=== PATIENT | male | born 1935 | race Caucasian/White ===

== ENCOUNTER 2017-06-13 09:05 | Inpatient (IN) | payer MEDICARE, MEDICAID ==
[~2017-06-13] VITALS: Ht 185.4 cm; Wt 87.0 kg
[2017-06-13] VITALS (8 sets, daily range): BP systolic 124–167; BP diastolic 52–87; PULSE 56–62; RESP 10–20; O2SAT 93–99
[~2017-06-13 09:05] MED LIST: ARI5 PO; CLON0.1T14 PO; FURO40TA PO; INSLIS SQ; INSU100C2 SQ; KEP500T PO; LOPRESSOR25 MG PO; POTA20TA16 PO; ROSU5TAB PO; SERT100T PO
--- NOTE | 2017-06-13 09:11 | ED.REPORT ---
HPI-GI Bleed Date of Service Jun 13, 2017 ED Provider: Richie Simpson MD An 81 year old male with a history of vascular dementia, hypertension, prostate cancer s/p prostatectomy and radiation, CABG, diabetes, COPD and atrial fibrillation is brought to the ED via EMS due to rectal bleeding. Per report from [facility] where the pt resides, the pt had a small rectal bleed last night , but his diaper was fully saturated with bright red blood this morning. The pt estimates that he has bled 0.5 quarts of blood since onset and states that the bleeding has slowed down today. He was given his daily aspirin by staff this morning prior to awareness of the bleed. The pt denies lightheadedness, dizziness, abdominal pain, nausea or pain with the rectal bleeding. He had a significant lower GI bleed several years ago while on blood thinners requiring over ten units of blood. The pt was previously on Coumadin for his atrial fibrillation, but was taken off following his last GI bleed. The pt is a poor historian. Nursing Notes Stated Complaint: RECTAL BLEEDING Nursing Notes Reviewed: Yes Allergies: Coded Allergies: TAPE (Verified Allergy, Mild, severe water blisters, 09/11/09) morphine (Verified Adverse Reaction, Severe, NAUSEA, 09/11/09) Scheduled Acetaminophen (Acetaminophen) 500 Mg Tablet 500 MG PO TID Aspirin (Aspirin) 81 Mg Tablet 81 MG PO DAILY Brimonidine Tartrate (Brimonidine 0.15% Oph Soln) 10 Ml Drops 1 DROP BOTH_EYES TID Cholecalciferol (Vitamin D3) (Vitamin D) 1,000 Unit Capsule 1,000 UNIT PO DAILY Citalopram Hydrobromide (Celexa) 20 Mg Tablet 20 MG PO DAILY Cranberry Fruit (Cranberry) 450 Mg Tablet 450 MG PO TID Divalproex Sprinkle (Depakote Sprinkle) 125 Mg Capsule 125 MG PO TID Donepezil (Aricept) 5 Mg Tablet 5 MG PO BID Furosemide (Furosemide) 20 Mg Tab 10 MG PO DAILY Insulin Glargine (Lantus U100 Insulin Vial) 100 Unit/Ml Vial 10 UNIT SUBQ HS Insulin Glargine (Lantus U100 Insulin Vial) 100 Unit/Ml Vial 13 UNIT SUBQ DAILY Insulin Human Lispro (HumaLOG U100 Insulin Vial) 100 Unit/Ml Unit 6 UNIT SUBQ DAILYWM Hold for BG less than 80. Insulin Human Lispro (HumaLOG U100 Insulin Vial) 100 Unit/Ml Unit 6 UNIT SUBQ DAILYWL Hold for BG less than 80. Insulin Human Lispro (HumaLOG U100 Insulin Vial) 100 Unit/Ml Unit 5-7 UNIT SUBQ DAILYWD Blood Sugar Lispro Correction: 121-299 = 5 units; 300+ = 7 units. Latanoprost (Latanoprost) 2.5 Ml Drops 1 GTT BOTH_EYES HS Levetiracetam (Keppra) 750 Mg Tablet 750 MG PO BID Losartan Potassium (Losartan Potassium) 25 Mg Tablet 25 MG PO QPM Memantine HCl (Namenda-XR) 14 Mg Cap.spr.24 14 MG PO DAILY Metformin HCl (Metformin HCl ER) 500 Mg [id number] 500 MG PO DAILY Potassium Chloride ER (Potassium Chloride ER) 10 Meq Tablet 30 MEQ PO BIDWM TAKE WITH FOOD Rosuvastatin Calcium (Crestor) 20 Mg Tablet 20 MG PO HS Tiotropium [place] (Spiriva) 18 Mcg Cap.w.dev 18 MCG IH DAILY Scheduled PRN Acetaminophen (Acetaminophen) 325 Mg Tablet 325 MG PO Q4H PRN PRN For Pain Bisacodyl (Dulcolax Rectal) 10 Mg Supp.rect 10 MG RC DAILY PRN PRN For Constipation Cod Liver Oil/Zinc Oxide (Desitin Diaper Rash 40% Paste) 28 Gm Paste..g. 1 APPLIC TOP PRN PRN PRN Rash Glucagon,Human Recombinant (Glucagon Emergency Kit) 1 Mg Kit 1 MG IJ prn PRN PRN BG less than 50 Magnesium Hydroxide (Milk of Magnesia) 400 Mg/5 Ml Oral.susp 30 ML PO DAILY PRN PRN For Constipation Na Phos,M-B/Na Phos,Di-Ba (Fleet Enema) 133 Ml Enema 133 ML RC DAILY PRN PRN For Constipation General Time Seen by Provider: 09:10 Chief Complaint Chief Complaint: Other (Rectal bleeding) Hx Obtained From: Patient, Other family..., EMS Arrived By: Ambulance Onset Occurred: 13 - 16 hours ago Recent Healthcare: No recent hospitalization, Recent doctor visit Similar Sx Previous: Yes Past Medical History Past Medical History Notes: Comfort measures, full code Past Medical History TIA CVA CAD vascular dementia atrial fibrillation IDDM hypertension asthma pneumonia TB depression prostate cancer Past Surgical History prostatectomy CABG x2 Smoking History Unknown if Ever Smoker Social History lives at [facility] Other Social History: Good social support Ambulatory Status Independent Review of Systems Review of Systems Note: rectal bleeding denies pain with the rectal bleeding Respiratory: Denies: Non-productive cough, Shortness of breath Cardiovascular: Denies: Chest pain GI: Denies: Abdominal pain, Nausea, Vomiting Skin: Denies Rash Neurologic: Denies: Dizziness, Lightheaded Complete sys rev & neg: except as marked. Musculoskeletal: Denies: Back pain, Neck pain Physical Exam Initial Vital Signs Vital Signs (First) Date Time Temp Pulse Resp B/P Pulse Ox O2 Delivery O2 Flow Rate FiO2 06/13/17 09:13 59 10 136/52 96 Room Air 06/13/17 10:19 36.6 Initial VS: Reviewed General/Constitutional: Awake, Alert Respiratory / Chest: Atraumatic, Breath sounds NL, Breath sounds = bilat, No respiratory distress Cardiovascular: Heart rate NL, Regular rhythm, Heart sounds NL Abdomen: Atraumatic, Soft, No guarding, No rebound mild LLQ tenderness Rectum / Perineum: No mass bright red blood present guaiac positive Head / Eyes: Atraumatic, Normocephalic, PERRL, EOMI ENT: Atraumatic, Airway patent, Mucous membranes moist Skin Skin: Color NL, No rash, Warm, Dry Neurologic: Speech NL, No motor deficits, No sensory deficits Neck: Atraumatic, Supple, Full range of motion Back: Atraumatic, Full range of motion Upper Extremity / MS: Atraumatic, Full range of motion Lower Extremity / Pelvis / MS: Full range of motion, Neurologic intact, Vascular intact bilateral lower extremities wrapped Psychiatric: Affect NL, Mood NL Interpretation & Diagnostics Lab Results Interpretation Result Diagram: 06/13/17 0954 06/13/17 1005 Test 06/13/17 09:54 06/13/17 10:05 White Blood Count 6.1th/mm3 (3.8-10.1) Red Blood Count 3.93mil/mm3 (4.40-5.80) Hemoglobin 12.6g/dL (13.8-17.2) Hematocrit 37.6% (41.0-50.0) Mean Corpuscular Volume 95.7fL (81-100) Mean Corpuscular Hemoglobin 32.1pg (27.0-35.0) Mean Corpuscular Hemoglobin Concent 33.5% (32.0-37.0) Red Cell Distribution Width 12.6% (12.3-15.4) Platelet Count 181bil/L (150-400) Neutrophils (%) (Auto) 73.8% (40-74) Lymphocytes (%) (Auto) 16.3% (14-46) Monocytes (%) (Auto) 8.6% (4-12) Eosinophils (%) (Auto) 0.7% (0-5) Basophils (%) (Auto) 0.3% (0-3) Prothrombin Time 11.4sec (8.1-12.5) Prothromb Time International Ratio 1.06ratio Sodium Level 138mEq/L (134-144) Potassium Level 5.1mEq/L (3.5-5.2) Chloride Level 99mEq/L (97-108) Carbon Dioxide Level 26mmol/L (18-29) Blood Urea Nitrogen 20mg/dL (8-27) Creatinine 0.97mg/dL (0.76-1.27) Estimat Glomerular Filtration Rate 79mL/min (>59) Glucose Level 269mg/dL (60-99) Calcium Level 9.0mg/dL (8.5-10.1) Total Bilirubin 0.5mg/dL (0.0-1.2) Aspartate Amino Transf (AST/SGOT) 10U/L (0-50) Alanine Aminotransferase (ALT/SGPT) 8U/L (0-44) Alkaline Phosphatase 47U/L (25-160) Total Protein 6.3g/dL (6.4-8.4) Albumin 4.1g/dL (3.4-5.0) Hold Otero Top Tube Received (Received) ECG Interpretation ECG Interpretation: normal sinus rhythm with a rate of 56 prolonged NC interval at 259 QTC: [address]/T changes Time: 09:31 Interpreted by: ED physician Re-Eval/Medical Decision Med Decision/Clinical Course 81-year-old male presenting complaining of bright red blood per rectum times one. His vital signs are stable. He does have gross bright red blood on rectal exam. His hemoglobin is 12.6. I discussed with the on-call GI doctor who recommends admission trending hemoglobin and prepping for a colonoscopy tomorrow as above. Admitted to hospital. Source of Hx: Old records Re-Evaluation/Progress : Time of Eval: 11:16 Patient Status: Condition improved Re-Evaluation/Progress Note: Pt rechecked, who is comfortable. The diagnosis and plan for admission are discussed. The pt and his family understand and agree with the plan. All questions are addressed at this time. Consultation #1: Call Returned at: 11:02 Client Solutions Manager: Agrees with eval, Agrees with plan Note: Spoke with Dr. Josue, GI, regarding pt's case. Dr. Josue recommends admission, trending the pt's hemaglobin and a clear liquid diet until 10:00 tomorrow. He also recommends 2 L GoLYTELY today and 2 more at 06:00 tomorrow prior to colonoscopy. Consultation #2: Referral / Consult Name: Mitesh Quinones MD Consulted With: Hospitalist Call Returned at: 11:23 Client Solutions Manager: Agrees with eval, Agrees with plan, Accepts admit Note: Spoke with Dr. Quinones, hospitalist, regarding pt's case. Dr. Quinones agrees with the evaluation and agrees to admit the pt. Counseled Regarding: Diagnosis, Lab results, Need for admission Discharge & Departure Impression: Primary Impression: GI bleed GI bleed type/associated pathology: unspecified gastrointestinal hemorrhage type Qualified Code: K92.2 - Gastrointestinal hemorrhage, unspecified Disposition: ADMITTED TO HOSPITAL Discharge Condition All VS Reviewed: Yes Condition: Stable Referrals: Tod Horton MD (PCP) Scribe Attestation Portions of this note were transcribed by Aden Betancourt. I, Dr. Simpson personally performed the history, physical exam and medical decision-making; I reviewed and confirmed the accuracy of the information in the transcribed note. copies to: Tod Horton MD, Ben M MD Jun 13, 2017 09:11 ADEN BETANCOURT Jun 13, 2017 09:58
[2017-06-13] MEDS ORDERED: 0.9% Sodium Chloride 500 ML IV ONE (09:55)
[2017-06-13 10:07] LABS: BASOPHILS % (AUTO) 0.3 % (0-3); EOSINOPHILS % (AUTO) 0.7 % (0-5); MONOCYTES % (AUTO) 8.6 % (4-12); Mean Corpuscular Hemoglobin 32.1 pg (27.0-35.0); Mean Corpuscular Volume 95.7 fL (81-100); NEUTROPHILS % (AUTO) 73.8 % (40-74); Platelet Count 181 bil/L (150-400)
[2017-06-13 10:37] LABS: INR 1.06 ratio
[2017-06-13] MEDS ORDERED: Ondansetron 2 mg/mL 2 mL Inj IVPUSH PRN ×2 (11:25→12:15)
[2017-06-13] MEDS ORDERED: Alum-Mag Hydrox-Simeth 30 mL Suspension PO PRN ×2 (11:25→12:15)
[2017-06-13] MEDS ORDERED: 0.9% Sodium Chloride 1,000 ML IV SCH (12:14)
[2017-06-13] MEDS ORDERED: Polyethylene Glycol (PEG) 17 Gm Powder PO PRN (12:15)
[2017-06-13] MEDS ORDERED: ASPI-973 PO (12:37)
[2017-06-13] MEDS ORDERED: INSU100I30 SQ (13:01)
[2017-06-13] MEDS ORDERED: FUR20 PO (13:01)
[2017-06-13] MEDS ORDERED: CITA20TA PO (13:01)
[2017-06-13] MEDS ORDERED: CRES20T PO (13:06)
[2017-06-13] MEDS ORDERED: FURO10SO2 PO (13:06)
--- NOTE | 2017-06-13 13:13 | CONS ---
[address] [address] CONSULTATION REPORT PATIENT: PATRIZIA GORDILLO V : 1935 MR#: [id number] ADMIT: 06/13/2017 JOB ID: [id number] DATE OF SERVICE: 06/13/2017 GASTROENTEROLOGY CONSULTATION: REQUESTING PROVIDER: Dr. Richie Bolanos REASON FOR CONSULTATION: Hematochezia. HISTORY OF PRESENT ILLNESS: This is an 81-year-old male with a history of hemorrhoids, diverticulosis, adenomatous colon polyp and radiation proctitis who has done fine for a number of years now. Last colonoscopy of record was [address] Nguyen. The patient states that over the last three days he has had in essence painless bright red hematochezia. He is under the impression that he typically takes Coumadin but here in the ED his INR was 1.06. His initial hemoglobin was 12.6. Vital signs are acceptable. ALLERGIES: TAPE and MORPHINE. MEDICATIONS: Aricept, clonidine, Crestor, Zoloft, Keppra, Lasix, potassium chloride, insulin, metoprolol (and ?? Coumadin ??). PAST MEDICAL HISTORY: 1. Coronary artery disease. 2. Stroke. 3. TIA. 4. Vascular dementia. 5. Atrial fibrillation. 6. Diabetes. 7. Hypertension. 8. Asthma. 9. Pneumonia. 10. TB. 11. Depression. 12. Prostate cancer with radiation therapy. 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 14. Diverticulosis. 15. Hemorrhoids. 16. Colon polyps. PAST SURGICAL HISTORY: 1. Prostatectomy. 2. Coronary artery bypass grafting. SOCIAL HISTORY: He is currently a resident at [facility]. His granddaughter was present to assist with history as was one of her aunts. REVIEW OF SYSTEMS: The patient gets short of breath at between 20 and 40 feet. I am told he has been worked up for further coronary disease and they are under the impression that one of his bypass grafts is partially blocked but does not warrant intervention. He is not having any angina. He did have a little bit of epigastric discomfort when he pushed on his belly this morning but he did not notice it prior to himself pushing in that area. Otherwise, he has a bowel movement daily but the stool tends to be a little on the firm side. There has not been any report of any melena. He has not reported any nausea or vomiting. His review is otherwise negative. PHYSICAL EXAMINATION: The patient is in good spirits. Alert, oriented, conversational. Skin: Warm and dry. Sclerae anicteric. Both of his legs are bandaged with Tensor wrap. It sounds like he has experienced diabetic ulcerations although I am not entirely clear on the history here. Lungs clear bilaterally. Heart irregular. I did not appreciate any murmur at this time. Abdomen is soft with some extra stored adipose. Bowel sounds detected. I did not appreciate any guarding or significant tenderness to palpation. No distention. LABORATORIES: BUN 20, hemoglobin 12.6, hematocrit 37.6, platelets 181. White count 6.1, normal differential. INR 1.06, creatinine 0.97. Sodium 138, potassium 5.1, chloride 99, bicarbonate 26, glucose 269, calcium 9.0. Liver tests normal. Albumin 4.1. ASSESSMENT AND RECOMMENDATIONS: This is an 81-year-old male with established coronary disease, diabetes and a remote history of prostate cancer treated both with XRT and surgery. He carries a history of radiation induced proctitis that has required intervention in the past. The differential as to the source for his bleeding remains wide open. Certainly recurrent radiation induced proctitis versus rectal or colonic AVM versus advanced polyp versus diverticulosis versus hemorrhoidal bleed are all right there in the differential. The patient reported some discomfort with palpating himself in the epigastrium although I did not reproduce this during my examination, so I think things like ischemic colitis are less likely. I have recommended clear liquid diet, a split bowel prep with 2 L of GoLYTELY this afternoon, 2 L tomorrow morning and then n.p.o. after 10 a.m. for ideally colonoscopy sometime around noon. I would also recommend cardiology consultation to confirm suitability for his sedation. I do not see any local recent cardiology workup here in this hospital. The last note I see in the system was from Dr. Cantor in 2013 in [facility]. The patient does not have a pacemaker. COMMENT: This is a no charge physician visit. Today it is the Sabbath. Please do not submit a physician charge for this particular note.
--- NOTE | 2017-06-13 13:55 | PCM.HPMED ---
Subjective Date of Service Jun 13, 2017 Primary Provider: Admitting Physician: Mitesh Quinones MD Primary Care Physician: Tod Horton MD Attending Physician: Mtiesh Quinones MD Admit Status: From the Emergency Department, Full Admit, Remote Telemetry Chief Complaint: Rectal bleeding History of Present Illness: This is an 81-year-old male with a history of dementia who lives at [facility]. He apparently has had several episodes of rectal bleeding over the last 2 weeks with more pronounced bright red blood per rectum today. He was brought in by ambulance is found to have normal vital signs and stable hematocrit. He has a distant history of prostate cancer with radiation therapy and had one massive rectal bleed several years ago requiring massive transfusion and felt to relate to radiation induced colitis. The patient is stable time of interview denies any recurrent bleeding. He is not lightheaded, short of breath, or have any chest pain. The patient's entire family is in the room with him. The patient is DO NOT RESUSCITATE and his pulse does indicate comfort care but they do want to pursue colonoscopy. Anorexia, vomiting or hematemesis. His blood sugars have been elevated recently. He does have chronic leg wounds bilaterally is having chronic dressing changes on a daily basis. Foot lesions or ulcers. Review of Systems: He denies blood in the urine. He denies any fevers chills or rhinorrhea. No cough. All all systems reviewed and otherwise unremarkable except as noted in history of present illness. Allergies Coded Allergies: TAPE (Verified Allergy, Mild, severe water blisters, 09/11/09) morphine (Verified Adverse Reaction, Severe, NAUSEA, 09/11/09) Home Medications Clonidine-Expunged Drug, Do Not Renew! (Clonidine-Expunged Drug, Do Not Renew!) 0.1 Mg Tablet 0.1 MG PO HS Donepezil-Expunged Drug, Do Not Renew! (Donepezil-Expunged Drug, Do Not Renew!) 5 Mg Tablet 5 MG PO DAILY Furosemide-Expunged Drug, Do Not Renew! (Lasix-Expunged Drug, Do Not Renew!) 40 Mg Tablet 40 MG PO BID Weigh today at home. Weight without clothes is baseline weight. If weight drops by over 2 pounds, then reduce lasix to once a day on that day. Decide lasix dose every day based on weight: A) within 2 pounds of baseline, then take 40mg twice daily B) 3 or 4 pounds below baseline, then take 40mg once daily C) 5 pounds or more below baseline, take none D) greater than 2 pounds over baseline- Call doctor. Take potassium dose with each lasix dose. Insulin Glargine-Expunged Drug, Do Not Renew! (Lantus-Expunged Drug, Do Not Renew!) 100 U/Ml Cartridge 20 U SQ HS Insulin Lispro-Expunged Drug, Do Not Renew! (Humalog-Expunged Drug, Do Not Renew !) 100 U/Ml Vial 12 U SQ TIDAC Metoprolol Tart-Expunged Drug, Do Not Renew! (Metoprolol Tart-Expunged Drug, Do Not Renew!) 25 Mg Tab 12.5 MG PO BID Potassium Chl-Expunged Drug, Do Not Renew! (W-Dbq-Byzyelaz Drug, Do Not Renew!) 20 Meq Tab.prt.sr 20 MEQ PO WM Rosuvastatin-Expunged Drug, Do Not Renew! (Crestor-Expunged Drug, Do Not Renew! ) 5 Mg Tablet 40 MG PO DAILY Sertraline-Expunged Drug, Choose New Med! (Sertraline-Expunged Drug, Choose New Med!) 100 Mg Tablet 100 MG PO DAILY levETIRAcetam-Expunged Drug, Do Not Renew! (Keppra-Expunged Drug, Do Not Renew! ) 500 Mg Tablet 500 MG PO BID PMH Dementia Prostate cancer with history of radiation therapy Previous lower rectal bleed Radiation-induced colitis Coronary artery disease with history of bypass grafting. Diabetes mellitus 2 Surgical History Coronary artery bypass grafting Radiation therapy to the prostate. Family History Strong family history of colon cancer. His last colonoscopy about 6 years ago. Social History Occupation: retired Hx Alcohol Use: No Hx Substance Use: No Hx Tobacco Use: No Smoking Status: Unknown if Ever Smoker Living Arrangement: Intermediate Facility Exam Vital Signs Vital Sign - Last Date Time Temp Pulse Resp B/P Pulse Ox O2 Delivery O2 Flow Rate FiO2 06/13/17 12:43 36.7 60 20 159/74 99 Room Air Exam Alert and oriented 3, no distress. Speech. Normal affect. Normal skull. Anicteric sclerae, symmetric pupils. Conjunctivae gaze. Normal external nose and ears. No facial droop. Normal oral mucosa. Neck is supple, no thyromegaly. Lungs are clear with normal effort and rate. Heart is regular without murmur gallop or rub. Abdomen soft, distended, and nontender Extremities are free of edema. Good pedal and radial pulses. Skin is free of rash or lesions. He does have a sternal scar present. Joints not swollen or deformed. No bruising or petechiae. Patient's lower extremities are wrapped bilaterally and he has this changed on a daily basis for his chronic wounds associated with diabetes. Lab and Diagnostics Result Diagram: 06/13/17 0954 06/13/17 1005 Assessment & Plan 1. Rectal bleed, present on admission and active. The plan is serial hematocrits and prep for colonoscopy. Gastroenterology was contacted directly from the emergency department. Dr. Pereira. Nelia per GI tonight. Clear liquids until tomorrow morning. 2. Acute blood loss anemia, present on admission and active. Plan is serial hematocrits and blood products if needed. 3. Dementia, present on admission and active. Follow clinically. 4. Coronary artery disease, present on admission and stable. Continue usual medications and follow clinically. Hold aspirin today. 5. Type is mellitus 2, present on admission and uncontrolled. Plan is Lantus 10 at bedtime and correctional lispro. The patient is DNR, confirmed today. He is admitted inpatient status with assessment length of stay of 2 nights. Pain Evaluation: Adequate Pain Control Resuscitation Status: DNR/DNI:Do Not Resuscitate/Intubate Time spent 40 minutes Mitesh Quinones MD Jun 13, 2017 13:55
--- NOTE | 2017-06-13 13:57 | PCM.ADCARE ---
Advance Care Planning Note Purpose of Encounter: To discuss level care and resuscitation wishes. Parties in Attendance: Patient, and many family members. Decisional Capacity: He is decisional. Subjective: The patient is doing well. He presents for rectal bleed which is a recurrent problem for him today. Objective: Lungs are clear with normal rate and effort. Heart is regular without murmur Abdomen soft and nontender. Extremities are free of edema. Goals of Care Determinations: 1. DO NOT RESUSCITATE 2. DO NOT INTUBATE 3. No advanced global care such as intensive care or resuscitation. 4. No tube feeds The patient is open to typical medical measures on a case by case basis including things like antibiotics and intermediate procedures such as endoscopy or colonoscopy. Plan: DO NOT RESUSCITATE DO NOT INTUBATE.. Prep for colonoscopy Blood transfusion is all right if necessary. CODE STATUS: DO NOT RESUSCITATE Time Spent Adv.Care Plannin minutes Mitesh Quinones MD Jun 13, 2017 13:56
[2017-06-13] MEDS ORDERED: INSLIS SUBQ ×3 (14:58→15:05)
[2017-06-13] MEDS ORDERED: PEG/Electrolytes 4,000 mL Solution PO ONE (15:00)
[2017-06-13] MEDS ORDERED: Glucose 40% Oral Gel 15 Gm Tube PO PRN (15:00)
[2017-06-13] MEDS ORDERED: INSU100V7 SUBQ ×2 (15:06→15:08)
[2017-06-13] MEDS ORDERED: Dextrose 10% 250 ML IV PRN (15:10)
[2017-06-13] MEDS ORDERED: LATA2.5D6 BOTH_EYES (15:11)
[2017-06-13] MEDS ORDERED: LOSA25TA21 PO (15:12)
[2017-06-13] MEDS ORDERED: METF-777 PO (15:13)
[2017-06-13] MEDS ORDERED: TIOT18CA3 IH (15:14)
[2017-06-13] MEDS ORDERED: MEMA14CA PO (15:14)
[2017-06-13] MEDS ORDERED: CHOL100045 PO (15:15)
[2017-06-13] MEDS ORDERED: DONE5TAB4 PO (15:16)
[2017-06-13] MEDS ORDERED: LEVE750T16 PO (15:18)
[2017-06-13] MEDS ORDERED: POTA10TA12 PO (15:19)
[2017-06-13] MEDS ORDERED: CRAN450T9 PO (15:21)
[2017-06-13] MEDS ORDERED: BRIM10DR14 BOTH_EYES (15:21)
[2017-06-13] MEDS ORDERED: DEP125 PO (15:22)
[2017-06-13] MEDS ORDERED: ACET-171 PO (15:23)
[2017-06-13] MEDS ORDERED: BISA10SU61 RC (15:24)
[2017-06-13] MEDS ORDERED: MAGN400O4 PO (15:24)
[2017-06-13] MEDS ORDERED: NA P133E23 RC (15:25)
[2017-06-13] MEDS ORDERED: COD28PAS TOP (15:26)
[2017-06-13] MEDS ORDERED: GLUC1KIT IJ (15:46)
[2017-06-13] MEDS ORDERED: ACET325T51 PO (15:47)
[2017-06-13] MEDS: levETIRAcetam 500 mg Tablet PO SCH ×2 (16:09→20:40)
[2017-06-13] MEDS ORDERED: Tiotropium 18mcg/Cap 5 Capsule Inhaler Kit INHALATION SCH (17:15)
[2017-06-13] MEDS: Insulin LISPRO 300 Unit/3 mL Inj SUBQ SCH ×2 (17:30→20:40)
[2017-06-13] MEDS ORDERED: .Epic Conversion Completed XX PRN (18:45)
[2017-06-13] MEDS ORDERED: BRIMONIDINE TARTRATE BOTH_EYES SCH (20:30)
[2017-06-13] MEDS ORDERED: Divalproex Sprinkles 125 mg ER12 Capsule PO SCH (20:30)
[2017-06-13] MEDS ORDERED: Insulin GLARgine 100 Unit/mL Syringe SUBQ SCH ×2 (21:00)
[2017-06-14] MEDS ORDERED: Brimonidine 0.2% 5 mL Ophthalmic Solution BOTH_EYES SCH (08:30)
== END 2017-06-14 01:32 | disposition admitted as inpatient to this hospital (09) | DRG 951 ==
LOC: SED 09:05 → MPC 11:31
PROVIDERS: ADMIT Hospitalist; ATTEND Hospitalist
DX: R69 Illness, unspecified (principal)